=== PATIENT | female | born 1985 | race Caucasian/White ===

== ENCOUNTER 2017-03-14 10:19 | Emergency (ER) | payer OTHER ==
[2017-03-14 10:22] VITALS: BP 129/90; PULSE 106; RESP 18; TEMP 98.8; O2SAT 100
--- NOTE | 2017-03-14 10:39 | C.PDOC ---
History Of Present Illness 31 year old patient presents to the ED complaining of sore throat and chills for the past 3-4 days. She also complains of a non-productive cough and runny nose. Patient states this happens when the weather gets warmer. She denies chest pain, shortness of breath, itching, rashes, or sensation of throat closing up. Patient is also requesting a test. Time Seen by Provider: 03/14/17 10:24 Chief Complaint (Nursing): ENT Problem History Per: Patient, Family ( at bedside) History/Exam Limitations: None Onset/Duration Of Symptoms: Days (3-4) Current Symptoms Are (Timing): Still Present Quality (Mouth/Throat): Tenderness Symptoms Have Been: Continuous Severity: Mild Past Medical History Reviewed: Historical Data, Nursing Documentation, Vital Signs Vital Signs: Last Vital Signs Temp 98.8 F 03/14/17 10:22 Pulse 106 H 03/14/17 10:22 Resp 18 03/14/17 10:22 BP 129/90 03/14/17 10:22 Pulse Ox 100 03/21/17 11:02 Family History: States: No Known Family Hx Review Of Systems Except As Marked, All Systems Reviewed And Found Negative. Constitutional: Positive for: Chills. Negative for: Fever ENT: Positive for: Nose Discharge, Throat Pain. Negative for: Mouth Swelling, Throat Swelling Cardiovascular: Negative for: Chest Pain, Palpitations Respiratory: Positive for: Cough. Negative for: Shortness of Breath Gastrointestinal: Negative for: Nausea, Vomiting, Abdominal Pain, Diarrhea Genitourinary: Negative for: Dysuria, Hematuria, Vaginal Discharge, Vaginal Bleeding Skin: Negative for: Rash Physical Exam - Physical Exam Appears: Non-toxic, No Acute Distress Skin: Warm, Dry Head: Normacephalic Eye(s): bilateral: Normal Inspection Ear(s): Bilateral: Normal Nose: Normal Oral Mucosa: Moist Tongue: Normal Appearing, No Swelling Lips: Normal Appearing, No Swelling Throat: Erythema (pharyngeal), No Exudate, No Drooling, Other (mild tonsillar swelling, uvula midline and normal in appearance) Neck: Normal, Normal ROM, Supple Chest: Symmetrical Cardiovascular: Rhythm Regular Respiratory: Normal Breath Sounds, No Rales, No Rhonchi, No Wheezing Extremity: Normal ROM Neurological/Psych: Oriented x3 Gait: Steady ED Course And Treatment O2 Sat by Pulse Oximetry: 100 (RA) Pulse Ox Interpretation: Normal Progress Note: POC ordered & was negative. Patient PO Naproxen in ED and reassured that symptoms are likely viral. She was discharged home with Rxs for Naprosyn and Chloraseptic spray, and instructed to follow up with PMD/clinic in 1-2 days. She understands she should return to ED if symptoms worsen. Disposition Counseled Patient/Family Regarding: Diagnosis, Need For Followup, Rx Given - Disposition Referrals: [facility] [Outside] Disposition: HOME/ ROUTINE Disposition Time: 10:45 Condition: STABLE Additional Instructions: FOLLOW UP WITH YOUR DOCTOR/CLINIC IN 1-2 DAYS USE MEDICATIONS DIRECTED SALT WATER GARGLES SEVERAL TIMES DAILY RETURN TO ER IF SYMPTOMS WORSEN Prescriptions: Phenol/Glycerin [Chloraseptic Max [place]] 1 spray MM Q6 PRN #1 spray PRN Reason: THROAT PAIN Naproxen [Naprosyn Tab] 375 mg PO BID PRN #20 tab PRN Reason: pain Instructions: Pharyngitis (ED) Forms: Accompanied To ED By: - POA Present On Arrival: None - Clinical Impression Clinical Impression: Viral pharyngitis - Scribe Statement The provider has reviewed the documentation as recorded by the Scribe Shakira Morocho Provider Attestation: All medical record entries made by the Scribe were at my direction and personally dictated by me. I have reviewed the chart and agree that the record accurately reflects my personal performance of the history, physical exam, medical decision making, and the department course for this patient. I have also personally directed, reviewed, and agree with the discharge instructions and disposition.
[2017-03-14] MEDS ORDERED: Naproxen 550 mg Tab PO STA (10:41)
[2017-03-14] MEDS ORDERED: Naproxen 550 mg Tab PO ONE (10:43)
== END 2017-03-14 10:53 | disposition home or self-care (01) ==
LOC: C.ER 10:19
DX: J02.9 Acute pharyngitis, unspecified (principal)